=== PATIENT | female | born 1965 | race Caucasian/White ===

== ENCOUNTER 2018-04-08 09:31 | Emergency (ER) | payer MEDICAID ==
[2018-04-08 10:15] LABS: URINE BLOOD (Dip) POC Negative (NEGATIVE); URINE GLUCOSE (Dip) POC Negative (NEGATIVE); URINE KETONES (Dip) POC Negative (NEGATIVE); URINE LEUKOCYTE EST (Dip) POC Negative (NEGATIVE); URINE NITRITE (Dip) POC Negative (NEGATIVE); URINE TOTAL PROTEIN POC Negative (NEGATIVE)
[2018-04-08 10:15] LABS: URINE PH (Dip) POC 6.5 (5.0-8.5)
[2018-04-08] MEDS: KETOROLAC 60 MG INJ IM (10:19)
== END 2018-04-08 10:54 | disposition home or self-care (01) ==
LOC: FTE 09:31
DX: R51 Headache (principal)
CPT/HCPCS: 81003; 81025; 96372; 99284-25